=== PATIENT | male | born 1990 | race Hispanic/Latino ===

== ENCOUNTER 2016-08-19 20:54 | Emergency (ER) | payer OTHER ==
[2016-08-19] MEDS ORDERED: ACETAMINOPH W/CODEINE #3 TAB UD As Ordered ONE (22:34)
--- NOTE | 2016-08-19 23:50 | EDDOCDS ---
Physician Documentation [facility] Name: Adria Handy Age: 26 yrs Sex: Male : 1990 Arrival Date: 08/19/2016 Time: 20:54 Bed I6 / 28 Private MD: ILA Jay Disposition: 08/19/16 23:38 Discharged to Home/Self Care. Impression: Sprain of ankle - LEFT, Other sprain of left foot. - Condition is Stable. - Discharge Instructions: Ankle Sprain, Foot Sprain. - Prescriptions for Ibuprofen 600 mg Oral Tablet - take 1 tablet by ORAL route every 6 hours As needed take with food; 30 tablet. Tylenol- Codeine #3 300-30 mg Oral Tablet - take 2 tablets by ORAL route every 6 hours As needed MDD: 4 tabs; 16 tablet. - Work Release Form - 2 day, Medication Reconciliation, Local Pharmacy Hours form. - Follow up: ILA Jay; When: Tomorrow; Reason: Recheck today's complaints, Continuance of care. - Problem is new. - Symptoms have improved. - Notes: USE MEDICATIONS INSTRUCTED, FOLLOW UP WITH YOUR DOCTOR TOMORROW, IF NEEDED HAVE YOUR DOCTOR REFER YOU TO ORTHOPEDICS Historical: - Allergies: no known allergies; - Home Meds: 1. none - PMHx: none; - PSHx: none; - Social history: Smoking status: Patient states was never smoker of tobacco. No barriers to communication noted, The patient speaks fluent Finnish. - Family history: Not pertinent. - : The pt / caregiver states he / she is not on anticoagulants. Home medication list is obtained from the patient. - Exposure Risk Screening:: None identified. Vital Signs: 08/19 20:56 BP 135 / 71; Pulse 73; Resp 17; Temp 97.2(O); Pulse Ox 100% on R/A; Weight 83.91 kg / lr2 184.99 lbs (R); Height 5 ft. 9 in. (175.26 cm) (R); Pain 3/10; 23:46 BP 112 / 54; Pulse 74; Resp 18; Temp 98.6; Pulse Ox 97% ; ajs 20:56 Body Mass Index 27.32 (83.91 kg, 175.26 cm) lr2 Procedures: 23:40 Fracture care/splinting: Splint applied to left lateral ankle using man wrap, Air Cast, ck7 applied by nurse. Examined by me, post splint application: neurovascular intact, 2+ distal pulses palpable, brisk capillary refill noted, Patient tolerated well. MDM: 22:19 Acetaminophen-Codeine 300 mg-30 mg 2 tabs PO once ordered. ck7 22:22 Ankle, Complete Ordered. EDMS 22:22 Foot, Complete Ordered. EDMS 22:41 Financial registration complete. ks16 22:52 [facility] Payment Agreement was scanned into [employer] and attached to record. ks16 23:37 Man Wrap ordered. ck7 23:37 Apply Air Cast to Patient. ordered. ck7 23:37 Crutches ordered. ck7 Administered Medications: 22:39 Drug: Acetaminophen-Codeine 2 tabs [acetaminophen 300 mg-codeine 30 mg tablet (2 tabs)] ld5 Route: PO; 23:49 Follow up: Response: Pain is decreased slm Signatures: Dispatcher [employer] EDMS Sharifa LittleRN RN rs3 Julienne Morton RN RN ld5 John Paul Don, RPA-C RPA-Cck7 Grecia Up,NAVYA [employer] slm Maria D Porras, Reg Reg ks16 The chart was reviewed and I authenticate all verbal orders and agree with the evaluation and treatment provided.Attachments: 22:52 [facility] Payment Agreement ks16 MTDD
--- NOTE | 2016-08-19 23:50 | EDDOCDS ---
Nurse's Notes [facility] Name: Adria Handy Age: 26 yrs Sex: Male : 1990 Arrival Date: 08/19/2016 Time: 20:54 Bed I6 / 28 Private MD: ILA Jay Diagnosis: Sprain of ankle-LEFT;Other sprain of left foot Presentation: 08/19 20:58 Presenting complaint: Patient states: Twisted Left ankle playing basketball today. The rs3 patients lower extremity has obvious swelling present on examination. Adult Sepsis Screening: The patient does not have new or worsening altered mentation. Patient's respiratory rate is less than 22. Systolic blood pressure is greater than 100. Patient has a qSOFA score of 0- Negative Sepsis Screen. Suicide/Homicide risk assessment- the patient denies having any suicidal and/or homicidal ideations and does not present with any other emotional, behavioral or mental health complaints. Status: The patient is a dependent. Transition of care: patient was not received from another setting of care. 20:58 Acuity: FAISAL Level 4 rs3 20:58 Method Of Arrival: Wheelchair rs3 Triage Assessment: 21:00 General: Appears in no apparent distress. Pain: Location: left foot. HIV screening NA rs3 for this visit Offered previously. Musculoskeletal: Capillary refill < 3 seconds No deformity noted Reports Pain is 6 out of 10 on a pain scale. Historical: - Allergies: no known allergies; - Home Meds: 1. none - PMHx: none; - PSHx: none; - Social history: Smoking status: Patient states was never smoker of tobacco. No barriers to communication noted, The patient speaks fluent Turkmen. - Family history: Not pertinent. - : The pt / caregiver states he / she is not on anticoagulants. Home medication list is obtained from the patient. - Exposure Risk Screening:: None identified. Screenin:39 Screening information is obtained from the patient. Fall risk: No risks identified. ld5 Assistance ADL's: requires no assistance with activities of daily living. Abuse/DV Screen: The patient / caregiver reports he/she is: not in a situation that causes fear, pain or injury. Nutritional screening: No deficits noted. Advance Directives: Currently, there is no health care proxy. home support is adequate. Assessment: 22:39 General: Appears uncomfortable, Behavior is cooperative. Pain: Location: left lateral ld5 malleolus. Neurological: Level of Consciousness is awake, alert. Respiratory: Airway is patent Respiratory effort is even, unlabored. Musculoskeletal: Swelling present in left lateral malleolus Signs and Symptoms of Compartment Syndrome: swelling to left ankle, pt reports pain with ROM. 23:47 General: Appears in no apparent distress, comfortable, Behavior is appropriate for age, slm cooperative. Pain: Location: left lateral ankle and left lateral malleolus. Vital Signs: 20:56 BP 135 / 71; Pulse 73; Resp 17; Temp 97.2(O); Pulse Ox 100% on R/A; Weight 83.91 kg lr2 (R); Height 5 ft. 9 in. (175.26 cm) (R); Pain 3/10; 23:46 BP 112 / 54; Pulse 74; Resp 18; Temp 98.6; Pulse Ox 97% ; ajs 20:56 Body Mass Index 27.32 (83.91 kg, 175.26 cm) lr2 Vitals: 20:56 Log In Time: August 19, 2016 at 20:54. lr2 ED Course: 20:55 Patient visited by Julienne Martinez. lr2 20:55 Patient moved to Waiting lr2 20:56 ILA Jay is Private Physician. lr2 20:56 Patient moved to Pre RCE lr2 20:59 Triage Initiated rs3 21:29 Patient visited by Bella Reyes RN. ck1 21:29 Patient moved to Triage 2 ck1 21:30 Patient moved to I6 / 28 ck1 22:03 [facility] ck7 22:03 Adam Ayala DO is Attending Physician. ck7 22:03 Patient visited by John Paul Don RPA-C. ck7 22:39 The patient / caregiver is instructed regarding the plan of care and ED course. Patient ld5 has correct armband on for positive identification. 22:39 No IV's were initiated during this patient's visit. ld5 22:41 Patient visited by Julienne Morton RN. ld5 22:51 Patient name changed from Adria\S\\S\Handy\S\ to Adria\S\ \S\Handy. EDMS 22:52 [facility] Payment Agreement was scanned into [employer] and attached to record. ks16 23:26 Patient visited by John Paul Don RPA-C. ck7 23:37 Pierre [facility] is Referral Physician. ck7 23:47 Patient visited by Susannah Mendieta. ajs 23:48 No procedures done that require assistance. slm 23:49 Patient visited by Grecia Up LPN. slm Administered Medications: 22:39 Drug: Acetaminophen-Codeine 2 tabs [acetaminophen 300 mg-codeine 30 mg tablet (2 tabs)] ld5 Route: PO; 23:49 Follow up: Response: Pain is decreased slm Order Results: There are currently no results for this order. Outcome: 23:38 Discharge ordered by Provider. ck7 23:48 Discharge Assessment: Patient awake, alert and oriented x 3. No cognitive and/or slm functional deficits noted. Patient verbalized understanding of disposition instructions. Patient awake and alert. patient administered narcotics -. The following High Risk Discharge criteria are identified: None. Discharged to home with crutches, with significant other. Condition: good Condition: improved. Discharge instructions given to patient, Instructed on discharge instructions, follow up and referral plans. medication usage, no driving heavy equipment, Rest, Ice, Compression and Elevation. crutch walking, Demonstrated understanding of instructions, medications, Pt was receptive of discharge instructions/ teaching. Prescriptions given X 2. No special radiology studies were completed. Property :Personal belongings accompany Pt. 23:49 Discharge Assessment: Patient awake, alert and oriented x 3. No cognitive and/or slm functional deficits noted. Patient verbalized understanding of disposition instructions. patient administered narcotics - yes. 23:49 Patient left the ED. slm Signatures: Dispatcher [employer] EDMS Bella ReyesRN RN ck1 Sharifa Little RN RN rs3 Julienne Morton RN RN ld5 Susannah Mendieta Christopher, RPA-C RPA-Cck7 Grecia Up LPN LPN slm Maria D Porras, Reg Reg ks16 Julienne Martinez lr2 MTDD
--- NOTE | 2016-08-20 07:51 | REP ---
Clinical: Deformity and swelling. Technique: AP, lateral, bilateral oblique views of the left ankle. Findings: Lateral soft tissue swelling. No acute fracture dislocation. Joint spaces and ankle mortise intact. Impression: Soft-tissue swelling. No acute fracture or dislocation. Signed by Sukumar Pool MD 08/20/2016 07:42 A
--- NOTE | 2016-08-20 08:00 | REP ---
Clinical: Trauma. Deformity/swelling. Technique: AP, lateral, bilateral oblique views left foot. Findings: The osseous structures and joint spaces are intact and normal. There is no evidence for acute fracture or dislocation. Surrounding soft tissues are unremarkable. No subcutaneous emphysema or radiodense foreign body. Impression: Normal examination. No acute fracture or dislocation. Signed by Sukumar Pool MD 08/20/2016 07:51 A
--- NOTE | 2016-08-22 00:50 | EDDOCDS ---
Nurse's Notes [facility] Name: Adria Handy Age: 26 yrs Sex: Male : 1990 Arrival Date: 08/19/2016 Time: 20:54 Bed I6 / 28 Private MD: ILA Jay Diagnosis: Sprain of ankle-LEFT;Other sprain of left foot Presentation: 08/19 20:58 Presenting complaint: Patient states: Twisted Left ankle playing basketball today. The rs3 patients lower extremity has obvious swelling present on examination. Adult Sepsis Screening: The patient does not have new or worsening altered mentation. Patient's respiratory rate is less than 22. Systolic blood pressure is greater than 100. Patient has a qSOFA score of 0- Negative Sepsis Screen. Suicide/Homicide risk assessment- the patient denies having any suicidal and/or homicidal ideations and does not present with any other emotional, behavioral or mental health complaints. Status: The patient is a dependent. Transition of care: patient was not received from another setting of care. 20:58 Acuity: FAISAL Level 4 rs3 20:58 Method Of Arrival: Wheelchair rs3 Triage Assessment: 21:00 General: Appears in no apparent distress. Pain: Location: left foot. HIV screening NA rs3 for this visit Offered previously. Musculoskeletal: Capillary refill < 3 seconds No deformity noted Reports Pain is 6 out of 10 on a pain scale. Historical: - Allergies: no known allergies; - Home Meds: 1. none - PMHx: none; - PSHx: none; - Social history: Smoking status: Patient states was never smoker of tobacco. No barriers to communication noted, The patient speaks fluent Cook Islander. - Family history: Not pertinent. - : The pt / caregiver states he / she is not on anticoagulants. Home medication list is obtained from the patient. - Exposure Risk Screening:: None identified. Screenin:39 Screening information is obtained from the patient. Fall risk: No risks identified. ld5 Assistance ADL's: requires no assistance with activities of daily living. Abuse/DV Screen: The patient / caregiver reports he/she is: not in a situation that causes fear, pain or injury. Nutritional screening: No deficits noted. Advance Directives: Currently, there is no health care proxy. home support is adequate. Assessment: 22:39 General: Appears uncomfortable, Behavior is cooperative. Pain: Location: left lateral ld5 malleolus. Neurological: Level of Consciousness is awake, alert. Respiratory: Airway is patent Respiratory effort is even, unlabored. Musculoskeletal: Swelling present in left lateral malleolus Signs and Symptoms of Compartment Syndrome: swelling to left ankle, pt reports pain with ROM. 23:47 General: Appears in no apparent distress, comfortable, Behavior is appropriate for age, slm cooperative. Pain: Location: left lateral ankle and left lateral malleolus. Vital Signs: 20:56 BP 135 / 71; Pulse 73; Resp 17; Temp 97.2(O); Pulse Ox 100% on R/A; Weight 83.91 kg lr2 (R); Height 5 ft. 9 in. (175.26 cm) (R); Pain 3/10; 23:46 BP 112 / 54; Pulse 74; Resp 18; Temp 98.6; Pulse Ox 97% ; ajs 20:56 Body Mass Index 27.32 (83.91 kg, 175.26 cm) lr2 Vitals: 20:56 Log In Time: August 19, 2016 at 20:54. lr2 ED Course: 20:55 Patient visited by Julienne Martinez. lr2 20:55 Patient moved to Waiting lr2 20:56 ILA Jay is Private Physician. lr2 20:56 Patient moved to Pre RCE lr2 20:59 Triage Initiated rs3 21:29 Patient visited by Bella Reyes RN. ck1 21:29 Patient moved to Triage 2 ck1 21:30 Patient moved to I6 / 28 ck1 22:03 John Paul Don [facility]-C [facility]. ck7 22:03 Adam Ayala DO is Attending Physician. ck7 22:03 Patient visited by oJhn Paul Don RPA-C. ck7 22:39 The patient / caregiver is instructed regarding the plan of care and ED course. Patient ld5 has correct armband on for positive identification. 22:39 No IV's were initiated during this patient's visit. ld5 22:41 Patient visited by Julienne Morton RN. ld5 22:51 Patient name changed from Adria\S\\S\Handy\S\ to Adria\S\ \S\Handy. EDMS 22:52 [facility] Payment Agreement was scanned into [employer] and attached to record. ks16 23:26 Patient visited by John Paul Don RPA-C. ck7 23:37 Pierre [facility] is Referral Physician. ck7 23:47 Patient visited by Susannah Mendieta. ajs 23:48 No procedures done that require assistance. slm 23:49 Patient visited by Grecia Up LPN. slm 08/20 08:16 Ankle, Complete Returned. EDMS 08:16 Foot, Complete Returned. EDMS 12:01 T-Sheet-- Draft Copy was scanned into [employer] and attached to record. gb Administered Medications: 08/19 22:39 Drug: Acetaminophen-Codeine 2 tabs [acetaminophen 300 mg-codeine 30 mg tablet (2 tabs)] ld5 Route: PO; 23:49 Follow up: Response: Pain is decreased slm Order Results: Radiology Order: Ankle, Complete Test: Ankle, Complete REASON FOR EXAMINATION: Deformity/Swelling; Clinical: Deformity and swelling.; ; Technique: AP, lateral, bilateral oblique views of the left ankle.; ; Findings:; Lateral soft tissue swelling. No acute fracture dislocation. Joint spaces and; ankle mortise intact.; ; Impression:; Soft-tissue swelling. No acute fracture or dislocation.; ; ; Signed by; Sukumar Pool MD 08/20/2016 07:42 A; Radiology Order: Foot, Complete Test: Foot, Complete REASON FOR EXAMINATION: Deformity/Swelling; Clinical: Trauma. Deformity/swelling.; ; Technique: AP, lateral, bilateral oblique views left foot.; ; Findings: The osseous structures and joint spaces are intact and normal. There; is no evidence for acute fracture or dislocation. Surrounding soft tissues are; unremarkable. No subcutaneous emphysema or radiodense foreign body.; ; Impression:; Normal examination. No acute fracture or dislocation.; ; ; Signed by; Sukumar Pool MD 08/20/2016 07:51 A; Outcome: 23:38 Discharge ordered by Provider. ck7 23:48 Discharge Assessment: Patient awake, alert and oriented x 3. No cognitive and/or slm functional deficits noted. Patient verbalized understanding of disposition instructions. Patient awake and alert. patient administered narcotics -. The following High Risk Discharge criteria are identified: None. Discharged to home with crutches, with significant other. Condition: good Condition: improved. Discharge instructions given to patient, Instructed on discharge instructions, follow up and referral plans. medication usage, no driving heavy equipment, Rest, Ice, Compression and Elevation. crutch walking, Demonstrated understanding of instructions, medications, Pt was receptive of discharge instructions/ teaching. Prescriptions given X 2. No special radiology studies were completed. Property :Personal belongings accompany Pt. 23:49 Discharge Assessment: Patient awake, alert and oriented x 3. No cognitive and/or slm functional deficits noted. Patient verbalized understanding of disposition instructions. patient administered narcotics - yes. 23:49 Patient left the ED. slm Signatures: Dispatcher [employer] EDMS Clotilde Long, Reg Reg gb Bella Reyes,RN RN ck1 Sharifa LittleRN RN rs3 Julienne Morton,RN RN ld5 Susananh Mendieta Christopher, RPA-C RPA-Cck7 Grecia Up LPN LPN Maria D Salazar, Reg Reg ks16 Julienne Martinez2 Chart Complete MTDD
--- NOTE | 2016-08-22 00:50 | EDDOCDS ---
Physician Documentation [facility] Name: Adria Handy Age: 26 yrs Sex: Male : 1990 Arrival Date: 08/19/2016 Time: 20:54 Bed I6 / 28 Private MD: ILA Jay Disposition: 08/19/16 23:38 Discharged to Home/Self Care. Impression: Sprain of ankle - LEFT, Other sprain of left foot. - Condition is Stable. - Discharge Instructions: Ankle Sprain, Foot Sprain. - Prescriptions for Ibuprofen 600 mg Oral Tablet - take 1 tablet by ORAL route every 6 hours As needed take with food; 30 tablet. Tylenol- Codeine #3 300-30 mg Oral Tablet - take 2 tablets by ORAL route every 6 hours As needed MDD: 4 tabs; 16 tablet. - Work Release Form - 2 day, Medication Reconciliation, Local Pharmacy Hours form. - Follow up: ILA Jay; When: Tomorrow; Reason: Recheck today's complaints, Continuance of care. - Problem is new. - Symptoms have improved. - Notes: USE MEDICATIONS INSTRUCTED, FOLLOW UP WITH YOUR DOCTOR TOMORROW, IF NEEDED HAVE YOUR DOCTOR REFER YOU TO ORTHOPEDICS Historical: - Allergies: no known allergies; - Home Meds: 1. none - PMHx: none; - PSHx: none; - Social history: Smoking status: Patient states was never smoker of tobacco. No barriers to communication noted, The patient speaks fluent North Korean. - Family history: Not pertinent. - : The pt / caregiver states he / she is not on anticoagulants. Home medication list is obtained from the patient. - Exposure Risk Screening:: None identified. Vital Signs: 08/19 20:56 BP 135 / 71; Pulse 73; Resp 17; Temp 97.2(O); Pulse Ox 100% on R/A; Weight 83.91 kg / lr2 184.99 lbs (R); Height 5 ft. 9 in. (175.26 cm) (R); Pain 3/10; 23:46 BP 112 / 54; Pulse 74; Resp 18; Temp 98.6; Pulse Ox 97% ; ajs 20:56 Body Mass Index 27.32 (83.91 kg, 175.26 cm) lr2 Procedures: 23:40 Fracture care/splinting: Splint applied to left lateral ankle using man wrap, Air Cast, ck7 applied by nurse. Examined by me, post splint application: neurovascular intact, 2+ distal pulses palpable, brisk capillary refill noted, Patient tolerated well. MDM: 22:19 Acetaminophen-Codeine 300 mg-30 mg 2 tabs PO once ordered. ck7 22:22 Ankle, Complete Ordered. EDMS 22:22 Foot, Complete Ordered. EDMS 22:41 Financial registration complete. ks16 22:52 [facility] Payment Agreement was scanned into [employer] and attached to record. ks16 23:37 Man Wrap ordered. ck7 23:37 Apply Air Cast to Patient. ordered. ck7 23:37 Crutches ordered. ck7 08/20 12:01 T-Sheet-- Draft Copy was scanned into [employer] and attached to record. gb Administered Medications: 08/19 22:39 Drug: Acetaminophen-Codeine 2 tabs [acetaminophen 300 mg-codeine 30 mg tablet (2 tabs)] ld5 Route: PO; 23:49 Follow up: Response: Pain is decreased slm Signatures: Dispatcher [employer] EDMS Clotilde Long, Reg Reg gb Sharifa LittleRN RN rs3 Julienne MortonRN RN ld5 John Paul Don RPA-C RPA-Cck7 Grecia Up LPN [employer] slm Maria D Porras, Reg Reg ks16 The chart was reviewed and I authenticate all verbal orders and agree with the evaluation and treatment provided.Attachments: :52 [facility] Payment Agreement ks16 08/20 12:01 T-Sheet-- Draft Copy gb Chart Complete MTDD
--- NOTE | 2016-08-22 00:50 | EDDOCDS ---
Physician Documentation [facility] Name: Adria Handy Age: 26 yrs Sex: Male : 1990 Arrival Date: 08/19/2016 Time: 20:54 Bed I6 / 28 Private MD: ILA Jay Disposition: 08/19/16 23:38 Discharged to Home/Self Care. Impression: Sprain of ankle - LEFT, Other sprain of left foot. - Condition is Stable. - Discharge Instructions: Ankle Sprain, Foot Sprain. - Prescriptions for Ibuprofen 600 mg Oral Tablet - take 1 tablet by ORAL route every 6 hours As needed take with food; 30 tablet. Tylenol- Codeine #3 300-30 mg Oral Tablet - take 2 tablets by ORAL route every 6 hours As needed MDD: 4 tabs; 16 tablet. - Work Release Form - 2 day, Medication Reconciliation, Local Pharmacy Hours form. - Follow up: ILA Jay; When: Tomorrow; Reason: Recheck today's complaints, Continuance of care. - Problem is new. - Symptoms have improved. - Notes: USE MEDICATIONS INSTRUCTED, FOLLOW UP WITH YOUR DOCTOR TOMORROW, IF NEEDED HAVE YOUR DOCTOR REFER YOU TO ORTHOPEDICS Historical: - Allergies: no known allergies; - Home Meds: 1. none - PMHx: none; - PSHx: none; - Social history: Smoking status: Patient states was never smoker of tobacco. No barriers to communication noted, The patient speaks fluent Burmese. - Family history: Not pertinent. - : The pt / caregiver states he / she is not on anticoagulants. Home medication list is obtained from the patient. - Exposure Risk Screening:: None identified. Vital Signs: 08/19 20:56 BP 135 / 71; Pulse 73; Resp 17; Temp 97.2(O); Pulse Ox 100% on R/A; Weight 83.91 kg / lr2 184.99 lbs (R); Height 5 ft. 9 in. (175.26 cm) (R); Pain 3/10; 23:46 BP 112 / 54; Pulse 74; Resp 18; Temp 98.6; Pulse Ox 97% ; ajs 20:56 Body Mass Index 27.32 (83.91 kg, 175.26 cm) lr2 Procedures: 23:40 Fracture care/splinting: Splint applied to left lateral ankle using man wrap, Air Cast, ck7 applied by nurse. Examined by me, post splint application: neurovascular intact, 2+ distal pulses palpable, brisk capillary refill noted, Patient tolerated well. MDM: 22:19 Acetaminophen-Codeine 300 mg-30 mg 2 tabs PO once ordered. ck7 22:22 Ankle, Complete Ordered. EDMS 22:22 Foot, Complete Ordered. EDMS 22:41 Financial registration complete. ks16 22:52 [facility] Payment Agreement was scanned into [facility] and attached to record. ks16 23:37 Man Wrap ordered. ck7 23:37 Apply Air Cast to Patient. ordered. ck7 23:37 Crutches ordered. ck7 08/20 12:01 T-Sheet-- Draft Copy was scanned into [facility] and attached to record. gb Administered Medications: 08/19 22:39 Drug: Acetaminophen-Codeine 2 tabs [acetaminophen 300 mg-codeine 30 mg tablet (2 tabs)] ld5 Route: PO; 23:49 Follow up: Response: Pain is decreased slm Signatures: Dispatcher [employer] EDMS Clotilde Long, Reg Reg gb Sharifa LittleRN RN rs3 Julienne MortonRN RN ld5 John Paul Don RPA-C RPA-Cck7 Grecia Up LPN [employer] slm Maria D Porras, Reg Reg ks16 The chart was reviewed and I authenticate all verbal orders and agree with the evaluation and treatment provided.Attachments: :52 [facility] Payment Agreement ks16 08/20 12:01 T-Sheet-- Draft Copy gb Chart Complete MTDD
== END 2016-08-19 23:49 | disposition home or self-care (01) ==
LOC: M ED 20:54
DX: S93.402A Sprain of unspecified ligament of left ankle, initial encounter (principal); S93.602A Unspecified sprain of left foot, initial encounter; X50.9XXA Other and unspecified overexertion or strenuous movements or postures, initial encounter; Y92.89 Other specified places as the place of occurrence of the external cause; Y93.67 Activity, basketball; Y99.8 Other external cause status